=== PATIENT | male | born 1995 | race Caucasian/White ===

== ENCOUNTER 2025-05-23 07:39 | Emergency (ER) | payer OTHER, SELFPAY ==
[2025-05-23 07:41] VITALS: BMI 21.7
[2025-05-23 08:07] VITALS: BP 111/66; PULSE 103; RESP 20; TEMP 39.1; O2SAT 99
[2025-05-23 08:32] LABS: Basophils % (Auto) 0 % (0-2.5); Eosinophils % (Auto) 0 % (0-10); Hematocrit 44.7 % (41.0-53.0); Hemoglobin 15.8 g/dL (13.5-16.0); Immature Granulocytes % (Auto) 0 % (0-0); Immature Granulocytes Auto 0.04 Thou/mm3 (0.00-0.00); Lymphocytes # (Auto) 0.3 Thou/mm3 (1.0-4.8); Lymphocytes % (Auto) 2 % (10-50); Mean Corpuscular HGB Conc 35.3 g/dl (31.0-37.0); Mean Corpuscular Hemoglobin 30.6 pg (25.0-35.0); Mean Corpuscular Volume 87 fL (80-100); Monocytes # (Auto) 0.5 Thou/mm3 (0.0-0.8); Monocytes % (Auto) 4 % (0-12); Neutrophils # (Auto) 12.1 Thou/mm3 (1.8-7.7); Neutrophils % (Auto) 93 % (37-80); Nucleated Red Blood Cell % 0 /100 WBC (0); Platelet Count 211 Thou/mm3 (140-440); RDW Standard Deviation 42.5 fL (35.1-43.9); Red Blood Count 5.16 Miln/mm3 (4.50-5.90)
--- NOTE | 2025-05-23 08:33 | XR_ITS ---
Examination: CT abdomen and pelvis without contrast. Coronal 3-D reconstructions. Sagittal 2-D reconstructions. Date and time of exam:May 23, 2025 0906 hours INDICATIONS: Generalized abdominal pain with nausea vomiting and diarrhea today CTDI: vol (mGy): 4.88 DLP: (mGycm): 272 Technique: Axial images of the abdomen have been obtained, 3 mm slice thickness Intravenous contrast material has not been administered. Low dose protocols were performed. One or more of the following dose reduction techniques were used; automated exposure control, adjustment of the mA and/or KV according to patient size, use of iterative reconstruction technique. Findings: No focal liver or splenic lesions No gallstones No pancreatic mass 1 to 2 mm right renal calculi, no hydronephrosis or ureteral calculi Aorta normal size Normal appendix No bowel obstruction No diverticulitis No bladder mass or bladder calculi The osseous structures are intact IMPRESSION: Tiny nonobstructing right renal calculi, no hydronephrosis or ureteral calculi Normal appendix No bowel obstruction diverticulitis or free air
[2025-05-23 08:41] VITALS: BP 119/81; PULSE 97; RESP 21; TEMP 38.2; O2SAT 100
[2025-05-23] MEDS: ONDANSETRON INJ 2 MG/ML INJ 2 ML 4 MG IVP (08:50)
[2025-05-23] MEDS: SODIUM CHLORIDE 0.9% 1000 ML 1,000 ML 999 ML IV (08:50)
[2025-05-23 08:54] VITALS: TEMP 38.2
[2025-05-23 08:54] LABS: Alanine Aminotransferase 13 U/L (10-49); Albumin, Serum 5.1 gm/dL (3.5-5.0); Albumin/Globulin Ratio 2.2 (1.2-2.2); Alkaline Phosphatase 97 U/L (46-116); Anion Gap 11 (7-16); Aspartate Amino Transferase 17 U/L (0-34); BUN/Creatinine Ratio 8 Ratio (12-20); Bilirubin,Total 0.7 mg/dL (0.3-1.2); Blood Urea Nitrogen 11 mg/dL (9-23); Calcium 9.9 mg/dL (8.3-10.6); Calcium (Corrected) 9.9 mg/dL (8.5-10.1); Carbon Dioxide 24.4 mMol/L (20.0-31.0); Chloride 101 mMol/L (98-107); Creatinine (Component) 1.3 mg/dL (0.6-1.3); Estimated Creatinine Clearance 85.3 mL/min (>60); Globulin 2.3 gm/dL (2.3-3.5); Glucose 127 mg/dL (74-106); Lipase 29 U/L (12-53); Osmolality,Calculated 273 (275-295); Potassium 3.7 mMol/L (3.4-5.1); Sodium 136 mMol/L (136-145); Total Protein 7.4 gm/dL (5.7-8.2); eGFR > 60 See Note
[2025-05-23] MEDS: ACETAMINOPHEN 500 MG TABLET 1000 MG PO (08:54)
[2025-05-23] MEDS: LOPERAMIDE 2 MG CAPSULE 4 MG PO (08:55)
--- NOTE | 2025-05-23 08:59 | PC.NURSE ---
PT IN TODAY FOR FEVER AND N/V THAT STARTED YESTERDAY. PT DID TAKE TYLENOL YESTERDAY EVENING FOR FEVER. PT CONTINUED WITH FEVER THROUGHOUT THE NIGHT. PT IS A/OX4 AT THIS TIME. PT CONT WITH FEVER. PT GOING TO CT VIA W/C.
--- NOTE | 2025-05-23 09:40 | EDNOTE_ITS ---
Nausea/Vomit./Diarrhea-RME/HPI General Chief complaint: Nausea/Vomiting/Diarrhea Stated complaint: N/V/D, ABD CRAMPS, ACHY, I THINK I HAVE THE FLU Time Seen by Provider: 05/23/25 07:44 Arrival date/time: 05/23/25 07:39 30-year-old male presents to the emergency department today for complaints of abdominal cramping, nausea vomiting and diarrhea and generalized body aches. Patient reports I think I have the flu Limitations: no limitations Related Data Previous Rx's ?Medication ?Instructions ?Recorded ibuprofen 800 mg tablet 800 mg PO TID PRN pain #30 t abs 05/23/25 loperamide 2 mg capsule (Imodium 2 mg PO Q6H PRN loose stool #14 05/23/25 A-D) caps ondansetron 4 mg disintegrating 4 mg PO Q8H PRN nausea and 05/23/25 tablet vomiting #10 tabs Allergies Allergy/AdvReac Type Severity Reaction Status Date / Time No Known Allergies Allergy Verified 05/23/25 07:43 Review of Systems Review of Systems Systems Reviewed: All systems reviewed, normal except as documented Constitutional Constitutional: Reports system reviewed and no additional complaints, except as documented, Denies fever(s) and Denies headache(s) Eyes Eyes: Reports system reviewed and no additional complaints, except as documented and Denies blurry vision ENT Ears, Nose, Mouth, and Throat: Reports system reviewed and no additional complaints, except as documented, Denies headache(s), Denies nasal congestion and Denies nasal discharge Cardiovascular Cardiovascular: Reports system reviewed and no additional complaints, except as documented, Denies chest pain and Denies dyspnea Respiratory Respiratory: Reports system reviewed and no additional complaints, except as documented, Denies chest congestion, Denies cough and Denies dyspnea Gastrointestinal Gastrointestinal: Reports system reviewed and no additional complaints, except as documented, Reports abdominal pain, Denies hematochezia, Reports loose stools, Denies melena, Reports nausea and Reports vomiting Integumentary/Breasts Skin/Breast: Reports system reviewed and no additional complaints, except as documented and Denies rash Neurologic Neurologic: Reports system reviewed and no additional complaints, except as documented, Reports as per HPI and Denies headache(s) Past Medical History Past Medical History CARDIAC: Negative Congestive Heart Failure RESPIRATORY: Negative Chronic Obstructive Pulmonary Disease (COPD) GENITOURINARY: Negative Renal Disease ENDOCRINE: Negative Diabetes Mellitus Type 1 or Diabetes Mellitus Type 2 Social History SMOKING STATUS: Never smoker ED Exam General Limitations: Present no limitations General appearance: Present alert and in no apparent distress Head Head exam: Present atraumatic Eye Eye exam: Present normal appearance, PERRL and EOMI ENT ENT exam: Present normal exam, normal oropharynx and mucous membranes moist Neck Neck exam: Present normal inspection, full ROM and trachea midline Chest Chest inspection: Present normal inspection and symmetric chest wall rise Respiratory Respiratory exam: Present normal lung sounds bilaterally; Absent respiratory distress or wheezes Cardiovascular Cardiovascular exam: Present regular rate, normal rhythm and normal heart sounds Abdominal Exam Abdominal exam: Present soft and normal bowel sounds; Absent distention, tenderness, guarding, rebound, rigidity, Leyva's sign or tenderness at McBurney's Point Abdominal tenderness: Absent RUQ or RLQ Extremities Exam Extremities exam: Present normal inspection and full ROM Back Exam Back exam: Present normal inspection and full ROM Neurological Exam Neurological exam: Present alert, oriented X3 and CN II-XII intact Psychiatric Psychiatric exam: Present normal affect and normal mood Skin Skin exam: Present warm, dry, intact and normal color Course Quality Measures none Orders Category Date Time Status Bedside Influenza A&B Antigen Test NOW Care 05/23/25 08:12 Completed Insert IV NOW Care 05/23/25 08:[address] abdomen pelvis wo con Stat Exams 05/23/25 08:33 Completed CBC Stat Lab 05/23/25 08:25 Completed CMP [Comprehensive Metabolic Panel] Stat Lab 05/23/25 08:25 Completed Lipase Stat Lab 05/23/25 08:25 Completed Acetaminophen Tab [Tylenol ES Tab] Med 05/23/25 08:12 Discontinued 1,000 mg PO X1 ONE Loperamide [Imodium] Med 05/23/25 08:12 Discontinued 4 mg PO X1 ONE Ondansetron Inj [Zofran Inj] Med 05/23/25 08:31 Discontinued 4 mg IVP X1 ONE Ondansetron Odt [Zofran Odt] Med 05/23/25 08:12 Discontinued 4 mg PO X1 ONE Sodium Chloride 0.9% 1000 ml [Ns] 1,000 ml Med 05/23/25 08:19 Discontinued IV 999 mls/hr Vital Signs Vital signs: Vital Signs Temperature 102.4 F H 05/23/25 08:07 Pulse Rate 103 H 05/23/25 08:07 Respiratory Rate 20 05/23/25 08:07 Blood Pressure 111/66 05/23/25 08:07 Pulse Oximetry (%) 99 05/23/25 08:07 Oxygen Delivery Method Room Air 05/23/25 08:07 O2 saturation 99% room air within normal notes Nausea/Vomiting/Diarrhea MDM Narrative MDM Narrative:: 30-year-old male presents to the emergency department today for complaints of abdominal cramping, nausea vomiting and diarrhea and generalized body aches. Patient reports I think I have the flu Patient checked for the flu which came back negative symptoms are highly consistent with viral illness Lab work and imaging reviewed no acute emergent findings noted Patient given 1 L of IV fluids Tylenol Zofran and Imodium At the time of reevaluation patient reports he feels significantly better Explained to the patient should his symptoms persist or worsen he should return to the ER for further evaluation patient states understanding Patient data External records reviewed:: [facility] previous records Clinical information provided by:: patient Social determinants that could affect healthcare access:: none Patient has the following chronic illnesses:: None How is presenting disease/condition affected by chronic disease/condition?: no chronic disease Evaluation data The following diagnostics were reviewed and interpreted by me:: lab results and radiology exam(s) Lab and/or radiology exams considered but not ordered:: Labs radiology obtain Interpretation Summary: Reviewed by me Medications / Prescriptions Medications / Prescriptions considered but not ordered:: Given Medication administrations:: Medication Administration History Discontinued Medications Acetaminophen (Acetaminophen 500 Mg Tablet) 1,000 mg PO X1 ONE Stop: 05/23/25 08:13 Last Admin: 05/23/25 08:54 Dose: 1,000 mg Documented By: MINERVA Sodium Chloride (Ns) 1,000 mls @ 999 mls/hr IV .Q1H1M ONE Stop: 05/23/25 09:19 Last Infusion: 05/23/25 10:17 Dose: Infused Documented By: Admin: 05/23/25 08:50 Dose: 999 mls/hr Documented By: MINERVA Loperamide HCl (Loperamide 2 Mg Capsule) 4 mg PO X1 ONE Stop: 05/23/25 08:13 Last Admin: 05/23/25 08:55 Dose: 4 mg Documented By: MINERVA Ondansetron HCl (Ondansetron Odt 4 Mg Tabrap) 4 mg PO X1 ONE; Protocol Stop: 05/23/25 08:13 Last Admin: 05/23/25 08:51 Dose: Not Given Documented By: VRS Non-Admin Reason: Cancelled by Provider Ondansetron HCl (Ondansetron Inj 2 Mg/Ml Inj 2 Ml) 4 mg IVP X1 ONE; Protocol Stop: 05/23/25 08:32 Last Admin: 05/23/25 08:50 Dose: 4 mg Documented By: VRS Given Consultations Consultation(s) initiated? (list below): No Diagnosis Nausea Differential Diagnosis: traveler's diarrhea, food poisoning, gastroenteritis and clostridium difficile infection Most likely diagnosis given after review of the tests above:: Viral infection Admission Indicated Admission indicated?: not indicated Admission Request Was there a request for admission?: No Disposition Plan Disposition Plan: Discharge Discharge Attestation Discharge Attestation: The patient and all family members were given an opportunity to ask questions and understood the discharge instructions. Discharge instructions specifically effects, indications for sooner follow up or return to the emergency department, and the expected course of current diagnosis. Patient condition: Stable Discharge Plan Plan Patient Disposition: HOME (Self Care) Discharge Disposition comment: Stable Prescriptions/Referrals Prescriptions/Med Rec: New loperamide [Imodium A-D] 2 mg capsule 2 mg PO Q6H PRN (Reason: loose stool) Qty: 14 0RF ibuprofen 800 mg tablet 800 mg PO TID PRN (Reason: pain) Qty: 30 0RF ondansetron 4 mg tablet,disintegrating 4 mg PO Q8H PRN (Reason: nausea and vomiting) Qty: 10 0RF Referrals: No Primary/Family,Physician [Primary Care Provider] - 05/25/25 Problem List Clinical Impression: Nausea vomiting and diarrhea, Fever Patient/Caregiver Discharge Instructions Education Materials: Treating Diarrhea Additional Instructions: Please follow up with your primary care doctor in the next 24-48hrs for any worsening symptoms return here immediately Print Language: Ukrainian Stand Alone Forms: Tita Award Info., Patient Portal Info Letter PA/PRIMARY SUBSTANCE ABUSE COUNSELOR Supervising Physician PA/PRIMARY SUBSTANCE ABUSE COUNSELOR Supervising Physician: dr fletcher
== END 2025-05-23 10:20 | disposition home or self-care (01) ==
PROVIDERS: Nurse Practitioner Primary Care; Emergency Provider Family Medicine
DX: R11.2 Nausea with vomiting, unspecified (principal); R50.9 Fever, unspecified; R19.7 Diarrhea, unspecified; R10.84 Generalized abdominal pain
CPT/HCPCS: 36415; 74176; 80053; 83690; 85025; 96361; 96374; 99284; J2405; J7030; A9270